=== PATIENT | male | born 1990 | race African-American/Black ===

== ENCOUNTER 2019-10-24 14:00 | Emergency (ER) | payer MEDICAID ==
[~2019-10-24] VITALS: Ht 170.2 cm; Wt 72.6 kg
[2019-10-24 14:17] VITALS: BP 100/59
[2019-10-24] MEDS ORDERED: Lidocaine 1% MPF 10mg/ml 5ml INJ ONE (14:30)
[2019-10-24] MEDS ORDERED: Phenazopyridine 200mg tab ORAL ONE (14:45)
--- NOTE | 2019-10-24 15:00 | NUR ---
ED Nurse Note:urine sent to labs
[2019-10-24 15:02] LABS: APPEARANCE,URINE SLIGHTLY CLOUDY; BILIRUBIN, URINE NEGATIVE (NEGATIVE); COLOR,URINE PALE YELLOW; GLUCOSE, URINE (UA) NEGATIVE (NEGATIVE); KETONES,URINE NEGATIVE (NEGATIVE); LEUKOCYTE ESTERASE ,URINE 3+ (NEGATIVE); NITRITE,URINE NEGATIVE (NEGATIVE); PH,URINE 7 (4.5-8.0); PROTEIN,URINE NEGATIVE (NEGATIVE); UROBILINOGEN,URINE NORMAL MG/DL (0.0-1.0)
--- NOTE | 2019-10-24 15:07 | Emergency Room Report ---
History of Present Illness General Chief Complaint: Male Urogenital Problems Source: Patient Present Illness HPI 28-year-old male presents to the emergency department complaining of 5 out of 10 severity dysuria with penile discharge x3 days. Patient reports acute onset after having unprotected intercourse. Patient denies fevers or chills he denies testicular pain or swelling. Patient denies hematuria. Patient denies abdominal pain or tenderness, nausea, vomiting, genital lesions, rashes or swollen tender lymph nodes. Patient has no other aggravating or relieving factors at this time. Allergies: Coded Allergies: No Known Allergies (Unverified , 10/24/19) COVID-19 Screening Contact w/high risk pt: No Recent Travel to affected area: No Experienced COVID-19 symptoms?: No Patient History Past Medical History: see triage record Past Surgical History: none Pertinent Family History: none Reviewed Nursing Documentation: PMH: Agreed; PSxH: Agreed Nursing Documentation-PMH Past Medical History: No Stated History Review of Systems All Other Systems: negative except mentioned in HPI Physical Exam Vital Signs Date Time Temp Pulse Resp B/P (MAP) Pulse Ox O2 Delivery O2 Flow Rate FiO2 10/24/19 14:17 98.2 79 16 100/59 (73) 95 Room Air Sp02 EP Interpretation: reviewed, normal General Appearance: no apparent distress, alert, GCS 15, non-toxic Head: normocephalic, atraumatic Eyes: bilateral eye normal inspection, bilateral eye PERRL ENT: hearing grossly normal, normal voice Neck: full range of motion Respiratory: lungs clear, normal breath sounds, speaking full sentences Cardiovascular #1: regular rate, rhythm Gastrointestinal: normal bowel sounds, non tender, soft, non-distended, no guarding Genitourinary: normal inspection, no CVA tenderness, other - clear penile d/c noted --- remberto - ER EMT was clinical business manager Musculoskeletal: back normal, normal range of motion, gait/station normal, non- tender Neurologic: alert, motor strength/tone normal, oriented x3, sensory intact, responsive, speech normal Psychiatric: judgement/insight normal Skin: no rash, normal color Lymphatic: no adenopathy Medical Decision Making PA Attestation Dr. Sims Is my supervising Physician whom patient management has been discussed with. Diagnostic Impression: Primary Impression: Urethritis ER Course 28-year-old male presents to the emergency department complaining of 5 out of 10 severity dysuria with penile discharge x3 days. Patient reports acute onset after having unprotected intercourse. Patient denies fevers or chills he denies testicular pain or swelling. Patient denies hematuria. Patient denies abdominal pain or tenderness, nausea, vomiting, genital lesions, rashes or swollen tender lymph nodes. Patient has no other aggravating or relieving factors at this time. Ddx considered but are not limited to UTi , Urethritis, LGV, STI, Stone, Cystitis, prostatitis Retail Service Technician for PE was: Remberto - ER EMT Vital signs: are WNL, pt. is afebrile H&PE are most consistent with Urethritis--- suspected STI ORDERS: - UA : increased WBC's and few bacteria. ED INTERVENTIONS: -Pyridium PO -250mg Rocephin IM DISCHARGE: At this time pt. is stable for d/c to home. Will provide printed patient care instructions, and any necessary prescriptions. Care plan and follow up instructions have been discussed with the patient prior to discharge. Labs Test 10/24/19 14:30 Urine Color Pale yellow Urine Appearance Slightly cloudy Urine pH 7 (4.5-8.0) Urine Specific [place] 1.010 (1.005-1.035) Urine Protein Negative (NEGATIVE) Urine Glucose (UA) Negative (NEGATIVE) Urine Ketones Negative (NEGATIVE) Urine Blood 2+ (NEGATIVE) Urine Nitrite Negative (NEGATIVE) Urine Bilirubin Negative (NEGATIVE) Urine Urobilinogen Normal MG/DL (0.0-1.0) Urine Leukocyte Esterase 3+ (NEGATIVE) Urine RBC 2-4 /HPF (0 - 0) Urine WBC 60-80 /HPF (0 - 0) Urine Squamous Epithelial Cells None /LPF (NONE/OCC) Urine Bacteria Occasional /HPF (NONE) Last Vital Signs Date Time Temp Pulse Resp B/P (MAP) Pulse Ox O2 Delivery O2 Flow Rate FiO2 10/24/19 14:17 98.2 16 100/59 95 Room Air 10/24/19 14:17 79 Status: improved Disposition: HOME, SELF-CARE Condition: Stable Scripts Doxycycline Hyclate* (VIBRAMYCIN*) 100 Mg Capsule 100 MG ORAL EVERY 12 HOURS for 7 Days, #14 CAP 0 Refills Prov: Aym Leung 10/24/19 Referrals: NON PHYSICIAN (PCP) Patient Instructions: Urethritis, Adult Additional Instructions: Take medications as directed. Follow up with a Primary Care Provider in 3-5 days, even if your symptoms have resolved. Return sooner to ED if new symptoms occur, or current symptoms become worse. - Please note that this Emergency Department Report was dictated using [employer] scraper technology software, occasionally this can lead to erroneous entry secondary to interpretation by the dictation equipment. Amy Leung Oct 24, 2019 15:07
[2019-10-24] MEDS ORDERED: VIBRAMYCIN100 MG ORAL (15:23)
[2019-10-24 15:50] VITALS: BP 100/59
--- NOTE | 2019-10-24 15:50 | NUR ---
ER DISCHARGE NOTE: Patient is cleared to be discharged per ERMD, pt is aox4, on room air, with stable vital signs. pt was given dc and prescription instructions, pt was able to verbalize understanding, pt is able to ambulate with steady gait. pt took all belongings.
== END 2019-10-24 15:50 | disposition home or self-care (01) ==
LOC: EMR 14:44
DX: N34.2 Other urethritis (principal)
CPT/HCPCS: 81001; 87086; 96372; J0696; Z7502; 99283